=== PATIENT | male | born 1975 | race Caucasian/White ===

== ENCOUNTER 2016-09-27 15:52 | Emergency (ER) | payer OTHER ==
[~2016-09-27] VITALS: Ht 182.9 cm; Wt 102.1 kg
[~2016-09-27 15:52] MED LIST: ALEVE220 MG PO; CEFDINIR300 MG PO; FLAGYL500 MG PO; HYDROCODONE-APA1 TA1 PO; NAPROSYN500 MG PO; NORCO 5-325 TA1 EACH PO; ONDANSETRON HCL4 M2; ONDANSETRON HCL4 M2 PO; TYLENOL325 MG PO
[2016-09-27 17:03] LABS: ABSOLUTE NEUTROPHILS 7.1 thou/uL (1.4-8.2); BASOPHILS 0.3 % (0.0-2.0); EOSINOPHILS 0.2 % (0.0-3.0); HEMATOCRIT 41.5 % (42.0-52.0); HEMOGLOBIN 14.3 gm/dL (14.0-18.0); LYMPHOCYTES 12.1 % (24.0-44.0); MCH 30.9 pg (26.0-34.0); MCHC 34.5 g/dL (28.0-37.0); MCV 89.5 fL (80.0-100.0); MONOCYTES 10.9 % (1.0-8.0); PLATELET COUNT 183 thou/uL (150-400); POLYS 76.5 % (36.0-66.0); RBC 4.64 mil/uL (4.50-6.00); RDW 13.7 % (10.5-14.5); WBC 9.2 thou/uL (4.0-11.0)
[2016-09-27 17:05] LABS: MANUAL DIFF NO
[2016-09-27 17:16] LABS: ANION GAP 8 mmol/L (7-16); BUN 9 mg/dL (7-18); CHLORIDE 100 mmol/L (98-107); CO2 26 mmol/L (21-32); GLUCOSE 151 mg/dL (74-106); POTASSIUM 3.5 mmol/L (3.5-5.1); SODIUM 134 mmol/L (136-145)
[2016-09-27 17:32] LABS: ALBUMIN 3.6 g/dL (3.4-5.0); ALKALINE PHOSPHATASE 79 U/L (46-116); SGOT 33 U/L (15-37); SGPT 55 U/L (30-65); TOTAL BILIRUBIN 0.2 mg/dL (<0.1-1.0); TOTAL PROTEIN 7.2 g/dL (6.4-8.2)
[2016-09-27 17:41] LABS: DIRECT BILIRUBIN < 0.1 mg/dL (<0.1-0.3)
[2016-09-27 18:31] LABS: URINE BILIRUBIN NEGATIVE (Negative); URINE BLOOD NEGATIVE (Negative); URINE COLOR YELLOW; URINE GLUCOSE-RANDOM* NEGATIVE (Negative); URINE KETONES NEGATIVE (Negative); URINE NITRITE NEGATIVE (Negative); URINE PROTEIN (DIPSTICK) NEGATIVE (Negative); URINE SPECIFIC GRAVITY <= 1.005 (1.003-1.035); URINE UROBILINOGEN 0.2 E.U./dl (0.2-1.0)
[2016-09-27] MEDS ORDERED: IBUPROFEN 600600 M1 PO (18:46)
[2016-09-27] MEDS ORDERED: ONDANSETRON HCL4 M2 PO (18:46)
[2016-09-27] MEDS ORDERED: CARAFATE 1 GM TA1 G1 PO (18:46)
[2016-09-27] MEDS ORDERED: ZPAK PO (18:46)
== END 2016-09-27 19:04 | disposition home or self-care (01) ==
LOC: ER 15:52
PROVIDERS: Nurse Practitioner
DX: R11.2 Nausea with vomiting, unspecified (principal); J06.9 Acute upper respiratory infection, unspecified; H66.90 Otitis media, unspecified, unspecified ear; F17.210 Nicotine dependence, cigarettes, uncomplicated; Z90.49 Acquired absence of other specified parts of digestive tract; Z88.0 Allergy status to penicillin; Z88.8 Allergy status to other drugs, medicaments and biological substances

== ENCOUNTER 2017-07-07 15:41 | Emergency (ER) | payer OTHER ==
[~2017-07-07] VITALS: Ht 185.4 cm; Wt 101.2 kg
[~2017-07-07 15:41] MED LIST changes: +CARAFATE 1 GM TA1 G1 PO; +IBUPROFEN 600600 M1 PO; +ZPAK PO
[2017-07-07] MEDS ORDERED: PREVACID30 MG PO (16:39)
[2017-07-07] MEDS ORDERED: PRILOSEC 20 MG20 MG PO (16:40)
[2017-07-07] MEDS ORDERED: ONDANSETRON HCL4 M2 PO (16:45)
[2017-07-07] MEDS ORDERED: MOBIC7.5 MG PO (16:45)
== END 2017-07-07 16:50 | disposition home or self-care (01) ==
LOC: ER 15:41
DX: S06.0X0A Concussion without loss of consciousness, initial encounter (principal); G40.909 Epilepsy, unspecified, not intractable, without status epilepticus; Z88.0 Allergy status to penicillin; F17.210 Nicotine dependence, cigarettes, uncomplicated; W22.8XXA Striking against or struck by other objects, initial encounter; Y93.89 Activity, other specified; Y92.89 Other specified places as the place of occurrence of the external cause; Y99.8 Other external cause status

== ENCOUNTER 2017-08-01 22:15 | Emergency (ER) | payer OTHER ==
[~2017-08-01] VITALS: Ht 182.9 cm; Wt 104.3 kg
[~2017-08-01 22:15] MED LIST changes: +MOBIC7.5 MG PO; +PREVACID30 MG PO; +PRILOSEC 20 MG20 MG PO
[2017-08-01 23:08] LABS: BASOPHILS 0.5 % (0.0-2.0); EOSINOPHILS 0.4 % (0.0-3.0); HEMATOCRIT 41.6 % (42.0-52.0); HEMOGLOBIN 14.2 gm/dL (14.0-18.0); LYMPHOCYTES 11.1 % (24.0-44.0); MCH 30.3 pg (26.0-34.0); MCHC 34.2 g/dL (28.0-37.0); MCV 88.4 fL (80.0-100.0); MONOCYTES 9.8 % (1.0-8.0); PLATELET COUNT 254 thou/uL (150-400); POLYS 78.2 % (36.0-66.0); RDW 13.3 % (10.5-14.5); WBC 16.6 thou/uL (4.0-11.0)
[2017-08-01 23:13] LABS: CALCIUM 8.7 mg/dL (8.5-10.1); POTASSIUM 3.9 mmol/L (3.5-5.1)
[2017-08-01 23:19] LABS: ALBUMIN 3.8 g/dL (3.4-5.0); TOTAL BILIRUBIN 0.5 mg/dL (<0.1-1.0); TOTAL PROTEIN 7.3 g/dL (6.4-8.2)
[2017-08-01] MEDS ORDERED: DOXYCYCLINE 10100 MG PO (23:24)
[2017-08-01] MEDS ORDERED: NORCO 5-325 TA1 EACH PO (23:24)
== END 2017-08-02 00:06 | disposition home or self-care (01) ==
LOC: ER 22:15
PROVIDERS: Emergency Medicine
DX: J18.9 Pneumonia, unspecified organism (principal); G40.909 Epilepsy, unspecified, not intractable, without status epilepticus; Z90.49 Acquired absence of other specified parts of digestive tract; F17.210 Nicotine dependence, cigarettes, uncomplicated; Z88.0 Allergy status to penicillin

== ENCOUNTER 2017-12-09 21:27 | Emergency (ER) | payer OTHER ==
[~2017-12-09] VITALS: Ht 241.3 cm; Wt 106.6 kg
[~2017-12-09 21:27] MED LIST changes: +DOXYCYCLINE 10100 MG PO
[2017-12-09] MEDS ORDERED: SENNA-DOCUSATE1 EACH PO (23:06)
[2017-12-09] MEDS ORDERED: IBUPROFEN 600600 M1 PO (23:06)
[2017-12-09] MEDS ORDERED: NORCO 5-325 TA1 EACH PO (23:06)
[2017-12-09] MEDS ORDERED: NORFLEX100 MG PO (23:06)
[2017-12-09] MEDS ORDERED: VRAYLAR1.5 MG PO (23:18)
[2017-12-09] MEDS ORDERED: DEPAKOTE ER500 MG PO (23:18)
== END 2017-12-10 00:07 | disposition home or self-care (01) ==
LOC: ER 21:27
DX: S39.012A Strain of muscle, fascia and tendon of lower back, initial encounter (principal); F17.210 Nicotine dependence, cigarettes, uncomplicated; Z88.8 Allergy status to other drugs, medicaments and biological substances; Z88.0 Allergy status to penicillin; Z90.49 Acquired absence of other specified parts of digestive tract; X58.XXXA Exposure to other specified factors, initial encounter; Y92.89 Other specified places as the place of occurrence of the external cause; Y93.89 Activity, other specified; Y99.8 Other external cause status

== ENCOUNTER 2018-06-22 03:51 | Emergency (ER) | payer OTHER ==
[~2018-06-22] VITALS: Ht 182.9 cm; Wt 108.9 kg
[~2018-06-22 03:51] MED LIST changes: +DEPAKOTE ER500 MG PO; +NORFLEX100 MG PO; +PHENERGAN 25 MG25 M1 PO; +SENNA-DOCUSATE1 EACH PO; +VRAYLAR1.5 MG PO
[2018-06-22 04:16] VITALS: BP 160/109
[2018-06-22] MEDS ORDERED: ZPAK PO (04:34)
== END 2018-06-22 05:00 | disposition home or self-care (01) ==
LOC: ER 03:51
DX: H66.92 Otitis media, unspecified, left ear (principal); F17.210 Nicotine dependence, cigarettes, uncomplicated; Z90.49 Acquired absence of other specified parts of digestive tract; Z88.0 Allergy status to penicillin; Z88.8 Allergy status to other drugs, medicaments and biological substances